=== PATIENT | male | born 1955 | race Caucasian/White ===

== ENCOUNTER 2022-11-01 14:41 | Emergency (ER) | payer MEDICARE ==
[~2022-11-01] VITALS: Ht 172.7 cm; Wt 70.0 kg
[2022-11-01 21:15] VITALS: BP 110/68
[2022-11-01] MEDS ORDERED: HYDROCODONE/ACETAMINOPHEN 7.5/325MG TABLET GT STA (21:29)
[2022-11-01] MEDS ORDERED: ONDANSETRON HCL 4MG TABLET PO ONE (21:30)
[2022-11-01] MEDS ORDERED: HYDR-4001 MT (21:40)
== END 2022-11-01 22:35 | disposition home or self-care (01) ==
LOC: ER 14:41
DX: K94.23 Gastrostomy malfunction (principal)
CPT/HCPCS: 43762; 99284; Q0162

== ENCOUNTER 2022-11-06 08:18 | Inpatient (IN) | payer MEDICARE ==
[~2022-11-06] VITALS: Ht 153.7 cm; Wt 59.9 kg
[~2022-11-06 08:18] MED LIST: HYDR-4001 MT
[2022-11-06] MEDS ORDERED: RACEPINEPHRINE 2.25% 0.5ML NEB VIAL HHN ONE (09:30)
[2022-11-06 09:43] LABS: CLARITY URINE CLEAR (CLEAR); COLOR URINE YELLOW (YELLOW); KETONES URINE NEGATIVE (NEGATIVE); LEUKOCYTE ESTERASE URINE NEGATIVE (NEGATIVE); NITRITE URINE NEGATIVE (NEGATIVE); OCCULT BLOOD URINE NEGATIVE (NEGATIVE); PROTEIN URINE NEGATIVE (NEGATIVE); SPECIFIC GRAVITY URINE 1.026 (1.005-1.030)
[2022-11-06 09:46] LABS: BASOPHILS % 0.7 % (0.0-2.0); EOSINOPHILS % 0.6 % (0.0-5.0); HEMATOCRIT. 36.5 % (42.0-52.0); HEMOGLOBIN. 12.2 g/dL (14.0-18.0); LYMPHOCYTES % 16.9 % (20.0-50.0); MEAN CORPUSCULAR HEMOGLOBIN 30.4 pg (28.0-32.0); MEAN PLATELET VOLUME 9.1 fl (7.4-10.4); MONOCYTES % 7.5 % (2.0-8.0); NEUTROPHILS % 74.3 % (40.0-76.0); PLATELET 351 x1000/uL (130-400); RED BLOOD CELL COUNT 4.01 mill/uL (4.7-6.1); RED CELL DISTRIBUTION WIDTH 14.6 % (11.6-14.6)
[2022-11-06 09:55] LABS: CHLORIDE 91 mEq/L (98-107)
[2022-11-06 09:57] LABS: PROTHROMBIN TIME 11.2 sec (9.6-11.0)
[2022-11-06] MEDS ORDERED: SODIUM CHLORIDE 0.9% 500 ML IV ONE (11:30)
[2022-11-06] MEDS ORDERED: SODIUM CHLORIDE 0.9% 1,000 ML IV ONE ×2 (15:30→20:00)
[2022-11-06] MEDS ORDERED: ACETAMINOPHEN 325MG TABLET PO ONE (15:45)
[2022-11-06] MEDS ORDERED: DEXT 5%/0.9% NACL 1,000 ML IV ONE (15:45)
[2022-11-06] MEDS ORDERED: IBUPROFEN 400MG TABLET PO ONE (16:00)
[2022-11-06 16:03] LABS: HEMATOCRIT 30.5 % (42.0-52.0); HEMOGLOBIN 10.3 g/dL (14.0-18.0)
[2022-11-06 22:55] LABS: HEMATOCRIT 27.4 % (42.0-52.0); HEMOGLOBIN 9.1 g/dL (14.0-18.0)
[2022-11-07] MEDS ORDERED: ACETAMINOPHEN 325MG TABLET PO ONE (10:00)
[2022-11-07 10:28] LABS: HEMATOCRIT 27.5 % (42.0-52.0); HEMOGLOBIN 9.1 g/dL (14.0-18.0); MEAN CORPUSCULAR HEMOGLOBIN 30.9 pg (28.0-32.0); MEAN CORPUSCULAR VOLUME 93.9 fL (80.0-94.0); PLATELET 300 x1000/uL (130-400); RED BLOOD CELL COUNT 2.93 mill/uL (4.7-6.1); RED CELL DISTRIBUTION WIDTH 14.9 % (11.6-14.6)
[2022-11-07] MEDS ORDERED: SODIUM CHLORIDE 0.9% 1,000 ML IV ONE (12:00)
[2022-11-07] MEDS ORDERED: TRANEXAMIC ACID 1,000 MG/10 ML IV ONE (12:45)
[2022-11-07] MEDS ORDERED: PROPOFOL 200MG/20ML VIAL IV ONE (16:30)
[2022-11-07] MEDS ORDERED: ONDANSETRON HCL 4MG/2ML INJ IV PRN (17:15)
[2022-11-07] MEDS ORDERED: IPRATROPIUM/ALBUTEROL 0.5-3(2.5)MG/3ML NEB HHN PRN (17:15)
[2022-11-07] MEDS: ACETAMINOPHEN 325MG TABLET PO PRN ×2 (17:27→22:16)
[2022-11-07] MEDS: SODIUM CHLORIDE 0.9% 1,000 ML IV SCH (18:11)
[2022-11-08] VITALS (49 sets, daily range): BP systolic 90–136; BP diastolic 43–79
[2022-11-08 01:50] LABS: BASOPHILS % 0.6 % (0.0-2.0); EOSINOPHILS % 0.8 % (0.0-5.0); HEMATOCRIT. 31.2 % (42.0-52.0); HEMOGLOBIN. 10.5 g/dL (14.0-18.0); LYMPHOCYTES % 16.7 % (20.0-50.0); MEAN CORPUSCULAR HEMOGLOBIN 29.8 pg (28.0-32.0); MEAN CORPUSCULAR VOLUME 88.9 fL (80.0-94.0); MEAN PLATELET VOLUME 8.9 fl (7.4-10.4); MONOCYTES % 7.1 % (2.0-8.0); NEUTROPHILS % 74.8 % (40.0-76.0); PLATELET 284 x1000/uL (130-400); RED BLOOD CELL COUNT 3.51 mill/uL (4.7-6.1); RED CELL DISTRIBUTION WIDTH 16.3 % (11.6-14.6)
[2022-11-08] MEDS: ACETAMINOPHEN 325MG TABLET PO PRN ×2 (05:53→12:19)
[2022-11-08 07:09] LABS: BASOPHILS % 0.5 % (0.0-2.0); EOSINOPHILS % 0.4 % (0.0-5.0); HEMATOCRIT. 32.5 % (42.0-52.0); HEMOGLOBIN. 10.9 g/dL (14.0-18.0); LYMPHOCYTES % 11.7 % (20.0-50.0); MEAN CORPUSCULAR HEMOGLOBIN 30.1 pg (28.0-32.0); MEAN CORPUSCULAR VOLUME 89.7 fL (80.0-94.0); MEAN PLATELET VOLUME 8.8 fl (7.4-10.4); MONOCYTES % 5.6 % (2.0-8.0); NEUTROPHILS % 81.8 % (40.0-76.0); PLATELET 287 x1000/uL (130-400); RED BLOOD CELL COUNT 3.62 mill/uL (4.7-6.1); RED CELL DISTRIBUTION WIDTH 16.1 % (11.6-14.6)
[2022-11-08 07:40] LABS: CHLORIDE 107 mEq/L (98-107)
[2022-11-08] MEDS: SODIUM CHLORIDE 0.9% 1,000 ML IV SCH ×2 (09:35→22:06)
[2022-11-08] MEDS: RACEPINEPHRINE 2.25% 0.5ML NEB VIAL HHN PRN ×2 (11:10→20:02)
[2022-11-08] MEDS ORDERED: NALOXONE HCL 0.4MG/ML VIAL IV PRN (12:45)
[2022-11-08] MEDS ORDERED: ALBUTEROL (0.083%) 2.5MG/3ML NEB HHN PRN (12:45)
[2022-11-08] MEDS ORDERED: IPRATROPIUM BROMIDE (0.02%) 0.5MG/2.5ML NEB HHN PRN (12:45)
[2022-11-08 13:01] LABS: BG BASE EXCESS -2.1 mmol/L (-2.0-2.0); BG CARBOXYHEMOGLOBIN 0.3 % (0.5-1.5); BG DEOXYHEMOGLOBIN 1.6 % (0.0-5.0); BG FRACTION INSPIRED OXYGEN 28; BG METHEMOGLOBIN 0.2 % (0.0-1.5); BG OXYGEN SATURATION 98.4 % (92.0-98.5); BG OXYHEMOGLOBIN 97.9 % (94.0-97.0); BG PH 7.416 (7.350-7.450); BG PO2 134.5 mmHg (75.0-100.0); BG SAMPLE SITE RIGHT BRACHIAL; BG TOTAL HEMOGLOBIN 10.9 g/dL (12.0-18.0); BG VENT MODE HIGH FLOW
[2022-11-08] MEDS: MORPHINE SULFATE 2 MG/ML CPJ (NOT FOR IM USE) IV PRN (18:12)
[2022-11-08 19:14] LABS: HEMATOCRIT 28.5 % (42.0-52.0); HEMOGLOBIN 9.6 g/dL (14.0-18.0)
[2022-11-08] MEDS: TRAMADOL 50MG TABLET PO PRN (22:29)
[2022-11-09] VITALS (28 sets, daily range): BP systolic 91–122; BP diastolic 40–64
[2022-11-09 00:49] LABS: HEMATOCRIT 26.5 % (42.0-52.0); HEMOGLOBIN 8.8 g/dL (14.0-18.0)
[2022-11-09 05:54] LABS: BASOPHILS % 0.5 % (0.0-2.0); EOSINOPHILS % 0.8 % (0.0-5.0); HEMATOCRIT. 27.4 % (42.0-52.0); HEMOGLOBIN. 9.2 g/dL (14.0-18.0); LYMPHOCYTES % 17.9 % (20.0-50.0); MEAN CORPUSCULAR HEMOGLOBIN 30.6 pg (28.0-32.0); MEAN CORPUSCULAR VOLUME 91.3 fL (80.0-94.0); MEAN PLATELET VOLUME 8.8 fl (7.4-10.4); MONOCYTES % 7.6 % (2.0-8.0); NEUTROPHILS % 73.2 % (40.0-76.0); PLATELET 307 x1000/uL (130-400); RED CELL DISTRIBUTION WIDTH 15.9 % (11.6-14.6)
[2022-11-09 05:57] LABS: CHLORIDE 104 mEq/L (98-107)
[2022-11-09] MEDS: ACETAMINOPHEN 325MG TABLET PO PRN (11:02)
[2022-11-09 13:18] LABS: HEMATOCRIT 27.2 % (42.0-52.0); HEMOGLOBIN 9.1 g/dL (14.0-18.0)
[2022-11-09] MEDS: TRAMADOL 50MG TABLET PO PRN (13:50)
[2022-11-09] MEDS: MORPHINE SULFATE 2 MG/ML CPJ (NOT FOR IM USE) IV PRN (21:26)
[2022-11-10] VITALS (22 sets, daily range): BP systolic 95–142; BP diastolic 47–69
[2022-11-10 00:57] LABS: HEMATOCRIT 26.1 % (42.0-52.0); HEMOGLOBIN 8.7 g/dL (14.0-18.0)
[2022-11-10] MEDS: ACETAMINOPHEN 325MG TABLET PO PRN ×3 (04:44→16:30)
[2022-11-10] MEDS: SODIUM CHLORIDE 0.9% 1,000 ML IV SCH (04:44)
[2022-11-10 05:24] LABS: HEMATOCRIT 26.8 % (42.0-52.0); HEMOGLOBIN 8.9 g/dL (14.0-18.0)
[2022-11-10 12:37] LABS: HEMATOCRIT 28.9 % (42.0-52.0); HEMOGLOBIN 9.5 g/dL (14.0-18.0)
[2022-11-10 18:17] LABS: HEMOGLOBIN 9.1 g/dL (14.0-18.0)
[2022-11-10] MEDS: MORPHINE SULFATE 2 MG/ML CPJ (NOT FOR IM USE) IV PRN (23:22)
[2022-11-11] VITALS (28 sets, daily range): BP systolic 91–154; BP diastolic 47–75
[2022-11-11] MEDS: SODIUM CHLORIDE 0.9% 1,000 ML IV SCH ×2 (01:54→22:46)
[2022-11-11] MEDS: MORPHINE SULFATE 2 MG/ML CPJ (NOT FOR IM USE) IV PRN ×2 (05:59→15:28)
[2022-11-11] MEDS: ACETAMINOPHEN 325MG TABLET PO PRN ×2 (08:28→22:46)
[2022-11-11] MEDS: TRAMADOL 50MG TABLET PO PRN (17:30)
[2022-11-11] MEDS: RACEPINEPHRINE 2.25% 0.5ML NEB VIAL HHN PRN (22:41)
[2022-11-11] MEDS: PIPERACILLIN/TAZOBACTAM 3.375 G in DEXTROSE 5% WATER 50 ML IV SCH (22:45)
[2022-11-11 23:38] LABS: HEMATOCRIT 27.5 % (42.0-52.0); HEMOGLOBIN 9.4 g/dL (14.0-18.0)
[2022-11-12] VITALS (31 sets, daily range): BP systolic 94–153; BP diastolic 47–92
[2022-11-12] MEDS: PIPERACILLIN/TAZOBACTAM 3.375 G in DEXTROSE 5% WATER 50 ML IV SCH ×2 (05:28→14:46)
[2022-11-12] MEDS: ACETAMINOPHEN 325MG TABLET PO PRN ×3 (05:29→18:52)
[2022-11-12 05:38] LABS: BASOPHILS % 0.5 % (0.0-2.0); EOSINOPHILS % 1.2 % (0.0-5.0); HEMATOCRIT. 26.2 % (42.0-52.0); HEMOGLOBIN. 8.8 g/dL (14.0-18.0); LYMPHOCYTES % 14.7 % (20.0-50.0); MEAN CORPUSCULAR HEMOGLOBIN 30.9 pg (28.0-32.0); MEAN CORPUSCULAR VOLUME 91.7 fL (80.0-94.0); MEAN PLATELET VOLUME 8.8 fl (7.4-10.4); MONOCYTES % 6.9 % (2.0-8.0); NEUTROPHILS % 76.7 % (40.0-76.0); PLATELET 278 x1000/uL (130-400); RED BLOOD CELL COUNT 2.86 mill/uL (4.7-6.1); RED CELL DISTRIBUTION WIDTH 16.6 % (11.6-14.6)
[2022-11-12 07:10] LABS: CHLORIDE 106 mEq/L (98-107)
[2022-11-12] MEDS ORDERED: POTASSIUM CHLORIDE INJ 40 MEQ in DEXT 5% WATER 250 ML IV ONE (11:00)
[2022-11-12] MEDS: KCL 20MEQ/100ML X 2 FOR TOTAL KCL 40MEQ/200ML IV SCH ×2 (12:36→13:00)
[2022-11-12] MEDS: SODIUM CHLORIDE 0.9% 1,000 ML IV SCH (17:15)
[2022-11-12] MEDS ORDERED: POTASSIUM CHLORIDE 20MEQ/PACKET PO SCH (18:00)
[2022-11-13] VITALS (38 sets, daily range): BP systolic 36–142; BP diastolic 27–84
[2022-11-13] MEDS: ACETAMINOPHEN 325MG TABLET PO PRN ×4 (01:02→21:52)
[2022-11-13 05:38] LABS: BASOPHILS % 0.3 % (0.0-2.0); EOSINOPHILS % 0.9 % (0.0-5.0); HEMOGLOBIN. 8.4 g/dL (14.0-18.0); LYMPHOCYTES % 16.3 % (20.0-50.0); MEAN CORPUSCULAR HEMOGLOBIN 29.6 pg (28.0-32.0); MEAN CORPUSCULAR VOLUME 91.8 fL (80.0-94.0); MEAN PLATELET VOLUME 8.9 fl (7.4-10.4); MONOCYTES % 7.3 % (2.0-8.0); NEUTROPHILS % 75.2 % (40.0-76.0); PLATELET 289 x1000/uL (130-400); RED BLOOD CELL COUNT 2.83 mill/uL (4.7-6.1); RED CELL DISTRIBUTION WIDTH 16.4 % (11.6-14.6)
[2022-11-13 06:14] LABS: CHLORIDE 103 mEq/L (98-107)
[2022-11-13] MEDS: SODIUM CHLORIDE 0.9% 1,000 ML IV SCH (14:20)
[2022-11-14] VITALS (20 sets, daily range): BP systolic 90–135; BP diastolic 43–88
[2022-11-14] MEDS: ACETAMINOPHEN 325MG TABLET PO PRN ×2 (04:03→10:38)
[2022-11-14] MEDS: SODIUM CHLORIDE 0.9% 1,000 ML IV SCH (08:28)
[2022-11-14] MEDS ORDERED: HYDR-4001 MT (10:07)
[2022-11-14 13:03] LABS: BASOPHILS % 0.4 % (0.0-2.0); EOSINOPHILS % 0.3 % (0.0-5.0); HEMATOCRIT. 27.2 % (42.0-52.0); HEMOGLOBIN. 9.1 g/dL (14.0-18.0); LYMPHOCYTES % 12.4 % (20.0-50.0); MEAN CORPUSCULAR HEMOGLOBIN 30.3 pg (28.0-32.0); MEAN CORPUSCULAR VOLUME 91.2 fL (80.0-94.0); MEAN PLATELET VOLUME 8.4 fl (7.4-10.4); MONOCYTES % 5.6 % (2.0-8.0); NEUTROPHILS % 81.3 % (40.0-76.0); PLATELET 281 x1000/uL (130-400); RED BLOOD CELL COUNT 2.99 mill/uL (4.7-6.1); RED CELL DISTRIBUTION WIDTH 16.4 % (11.6-14.6)
== END 2022-11-14 16:00 | disposition home or self-care (01) | DRG 205 ==
LOC: ER 08:30 → 5EST 11-07 16:47 → EDBEDREQ 11-07 16:55 → EDBEDREQSVC 11-07 19:27 → CVICU 11-07 23:12
PROVIDERS: ADMIT Internal Medicine; ATTEND Internal Medicine
PROC: 30233N1 Transfusion of Nonautologous Red Blood Cells into Peripheral Vein, Percutaneous Approach (ICD-10-PCS; principal; 2022-11-07)
PROC: 30233R1 Transfusion of Nonautologous Platelets into Peripheral Vein, Percutaneous Approach (ICD-10-PCS; 2022-11-08)
PROC: 30233K1 Transfusion of Nonautologous Frozen Plasma into Peripheral Vein, Percutaneous Approach (ICD-10-PCS; 2022-11-08)
DX: J95.01 Hemorrhage from tracheostomy stoma (principal); R57.8 Other shock; E87.1 Hypo-osmolality and hyponatremia; D64.9 Anemia, unspecified; F17.200 Nicotine dependence, unspecified, uncomplicated; Z20.822 Contact with and (suspected) exposure to COVID-19; J39.2 Other diseases of pharynx; D72.829 Elevated white blood cell count, unspecified; Z85.819 Personal history of malignant neoplasm of unspecified site of lip, oral cavity, and pharynx
CPT/HCPCS: 36415; 36600; 71045; 80048; 80053; 81003; 82375; 82805; 82962; 83605; 83880; 84145; 85014; 85018; 85025; 85027; 86850; 86900; 86920; 86927; 87426; 93005; 94640; 99285; C9803; J2270; J2405; J2543; J2704; J3480; J7030; J7040; J7042; J7060; P9016; P9017; P9034; U0003; U0005